=== PATIENT | female | born 1995 | race American Indian/Alaskan Native ===

== ENCOUNTER 2017-09-04 14:29 | Emergency (ER) | payer SELFPAY ==
[2017-09-04 14:40] VITALS: BP 145/103
[2017-09-04 15:07] LABS: Basophils % (Auto) 0.3 % (0.0-1.8); Eosinophils # (Auto) 0.2 K/mm3 (0.0-0.4); Eosinophils % (Auto) 1.6 % (0.0-4.3); Hematocrit 32.8 % (30.3-42.9); Hemoglobin 10.5 gm/dl (10.1-14.3); Lymphocytes # (Auto) 2.8 K/mm3 (1.2-5.4); Lymphocytes % (Auto) 29.7 % (13.4-35.0); Mean Corpuscular HGB Conc 32 % (30-34); Mean Corpuscular Volume 78 fl (79-97); Monocytes # (Auto) 0.5 K/mm3 (0.0-0.8); Monocytes % (Auto) 5.1 % (0.0-7.3); Platelet Count 335 K/mm3 (140-440); Red Blood Count 4.19 M/mm3 (3.65-5.03); Red Cell Distribution Width 14.6 % (13.2-15.2)
[2017-09-04 15:14] LABS: Mean Corpuscular Hemoglobin 25 pg (28-32)
[2017-09-04 15:27] LABS: BUN/Creatinine Ratio 11; Blood Urea Nitrogen 8 mg/dL (7-17); Calcium 9.3 mg/dL (8.4-10.2); Hemolysis Index 2
[2017-09-04 15:53] LABS: Bilirubin,Urine NEG (Negative); Blood,Urine MOD (Negative); Color,Urine Yellow (Yellow); Mucus,Urine FEW /HPF; Protein,Urine <15 mg/dL mg/dL (Negative); Urobilinogen,Urine < 2.0 mg/dL (<2.0); WBC,Urine < 1.0 /HPF (0.0-6.0)
[2017-09-04 16:10] LABS: Amphetamine Screen,Urine PRESUMPTIVE NEGATIVE; Benzodiazepines Screen,Urine PRESUMPTIVE NEGATIVE; Cocaine Screen,Urine PRESUMPTIVE NEGATIVE; Methadone Screen,Urine PRESUMPTIVE NEGATIVE; Opiate Screen,Urine PRESUMPTIVE NEGATIVE
[2017-09-04 16:49] LABS: Cannabinoid Screen,Urine PRESUMPTIVE POSITIVE
== END 2017-09-04 20:30 | disposition left against medical advice (07) ==
LOC: ED 14:29
DX: Z00.8 Encounter for other general examination (principal); Z53.21 Procedure and treatment not carried out due to patient leaving prior to being seen by health care provider
CPT/HCPCS: 36415; 80048; 80307; 81001; 84703; 85025; 93005; 93010; G0480; 80320

== ENCOUNTER 2019-04-23 10:25 | Emergency (ER) | payer SELFPAY ==
[2019-04-23 10:42] VITALS: BP 125/89
[2019-04-23 11:56] LABS: Bacteria,Urine 1+ /HPF (Negative); Bilirubin,Urine NEG (Negative); Blood,Urine NEG (Negative); Color,Urine Yellow (Yellow); Mucus,Urine FEW /HPF; Urobilinogen,Urine < 2.0 mg/dL (<2.0)
[2019-04-23 11:58] LABS: HCG Qualitative,Urine Negative (Negative)
== END 2019-04-23 15:05 | disposition left against medical advice (07) ==
LOC: ED 10:25
DX: R07.89 Other chest pain (principal); Z53.21 Procedure and treatment not carried out due to patient leaving prior to being seen by health care provider
CPT/HCPCS: 81001; 81025; 87086

== ENCOUNTER 2019-04-24 17:05 | Emergency (ER) | payer SELFPAY ==
--- NOTE | 2019-04-24 17:55 | Event Note ---
ED Screening Note ED Screening Note: chest tightness that began 04/06/19 postussive emesis hx of asthma, takes albuterol inhaler, does not have her medicine no PCP +dry cough no fever lower back discomfort that began a few days ago LNMP: february, urine test yesterday was normal UA from yesterday shows UTI This initial assessment/diagnostic orders/clinical plan/treatment(s) is/are subject to change based on patients health status, clinical progression and re- assessment by fellow clinical providers in the ED. Further treatment and workup at subsequent clinical providers discretion. Patient/guardian urged not to elope from the ED as their condition may be serious if not clinically assessed and managed. Initial orders include: CXR
[2019-04-24 17:56] VITALS: BP 142/83
== END 2019-04-24 21:05 | disposition left against medical advice (07) ==
LOC: ED 17:05
DX: R07.89 Other chest pain (principal); Z53.21 Procedure and treatment not carried out due to patient leaving prior to being seen by health care provider

== ENCOUNTER 2020-06-09 09:55 | Emergency (ER) | payer SELFPAY ==
[2020-06-09 10:32] VITALS: BP 125/87
--- NOTE | 2020-06-09 12:02 | Emergency Department Report ---
ED Female HPI - General Chief complaint: Medical Clearance Stated complaint: 3 POSTITIVE PREG TEST/NEEDS PROOF OF Time Seen by Provider: 06/09/20 11:26 Source: patient Mode of arrival: Ambulatory Limitations: No Limitations - History of Present Illness Initial comments: 25-year-old female with no significant past medical history presents to the ER today complaint of a 2-week history of abdominal cramping, bilateral breast soreness and vaginal pain. She reports associated lower back pain, intermittent nausea and vomiting and a white vaginal discharge. Patient states that she missed her period on May 27. She states that she took 3 home test yesterday and they were positive. Denies any abnormal vaginal bleeding. She states that this is her first . She has not established with an SALES DEPARTMENT MANAGER as yet. MD Complaint: other (; Abdominal pain; vag discharge) -: week(s) (2) - Related Data Allergies Allergy/AdvReac Type Severity Reaction Status Date / Time No Known Allergies Allergy Verified 04/23/19 10:34 ED Review of Systems ROS: Stated complaint: 3 POSTITIVE PREG TEST/NEEDS PROOF OF Other details as noted in HPI ED Past Medical Hx - Past Medical History Previous Medical History?: Yes Hx Psychiatric Treatment: Yes (PTSD, Mood disorde, Depression) Hx Asthma: Yes Additional medical history: Hyperthyroidism - Surgical History Past Surgical History?: No - Social History Smoking Status: Never Smoker Substance Use Type: None ED Physical Exam - General Limitations: No Limitations General appearance: alert, in no apparent distress - Head Head exam: Present: atraumatic, normocephalic, normal inspection - Eye Eye exam: Present: normal appearance, PERRL, EOMI - ENT ENT exam: Present: normal exam, mucous membranes moist - Respiratory Respiratory exam: Present: normal lung sounds bilaterally. Absent: respiratory distress - Cardiovascular Cardiovascular Exam: Present: regular rate, normal rhythm, normal heart sounds - GI/Abdominal GI/Abdominal exam: Present: soft. Absent: distended, tenderness, guarding, rebound - Back Exam Back exam: Present: normal inspection, full ROM - Neurological Exam Neurological exam: Present: alert, oriented X3, CN II-XII intact, normal gait - Psychiatric Psychiatric exam: Present: normal affect, normal mood ED Course Vital Signs 06/09/20 10:29 Temperature 98.4 F Pulse Rate 92 H Respiratory 18 Rate Blood Pressure 125/87 O2 Sat by Pulse 100 Oximetry ED Medical Decision Making - Lab Data Result diagrams: 06/09/20 11:47 06/09/20 11:47 - Medical Decision Making 25-year-old female with no significant past medical history presents to the ER today complaint of a 2-week history of abdominal cramping, bilateral breast soreness and vaginal pain. She reports associated lower back pain, intermittent nausea and vomiting and a white vaginal discharge. Patient states that she missed her period on May 27. She states that she took 3 home test yesterday and they were positive. She states she wants confirmation. Denies any abnormal vaginal bleeding. She states that this is her first . She has not established with an SALES DEPARTMENT MANAGER as yet. Labs reviewed, CBC normal, CMP normal, urinalysis does not suggest UTI, and her quant hCG is [id number]. Offered to do a pelvic exam and ultrasound on patient but she refused. She states that she is ready to go and she is hungry. She is well-appearing, not toxic, and does not appear to be in any acute distress. She appears well-hydrated. She has a soft nontender abdomen on exam. Vital signs are stable. Patient states he will follow up with the SALES DEPARTMENT MANAGER. Informed I will give her referral to local SALES DEPARTMENT MANAGER. She understands to return if her symptoms changes or worsens in any way. Patient stable at time of discharge. Critical care attestation.: If time is entered above; I have spent that time in minutes in the direct care of this critically ill patient, excluding procedure time. ED Disposition Clinical Impression: , Abdominal pain in Disposition: -01 TO HOME OR SELFCARE Is pt being admited?: No Does the pt Need Aspirin: No Condition: Stable Instructions: Abdominal Pain During , [id number] Additional Instructions: You can take Tylenol as needed for pain. Return to the ER immediately if your abdominal pain worsens in any way in any way. Follow-up closely with SALES DEPARTMENT MANAGER. Referrals: [facility] [Provider Group] - 3-5 Days Time of Disposition: 13:10
[2020-06-09 12:08] LABS: Basophils % (Auto) 0.5 % (0.0-1.8); Eosinophils # (Auto) 0.2 K/mm3 (0.0-0.4); Eosinophils % (Auto) 1.9 % (0.0-4.3); Hematocrit 35.6 % (30.3-42.9); Hemoglobin 11.6 gm/dl (10.1-14.3); Lymphocytes # (Auto) 3.1 K/mm3 (1.2-5.4); Mean Corpuscular HGB Conc 33 % (30-34); Mean Corpuscular Volume 79 fl (79-97); Monocytes # (Auto) 0.5 K/mm3 (0.0-0.8); Monocytes % (Auto) 5.7 % (0.0-7.3); Platelet Count 278 K/mm3 (140-440); Red Blood Count 4.52 M/mm3 (3.65-5.03); Red Cell Distribution Width 16.4 % (13.2-15.2)
[2020-06-09 12:20] LABS: Bilirubin,Urine NEG (Negative); Blood,Urine NEG (Negative); Color,Urine Straw (Yellow); Protein,Urine <15 mg/dL mg/dL (Negative); Urobilinogen,Urine < 2.0 mg/dL (<2.0)
[2020-06-09 12:36] LABS: Alanine Aminotransferase 8 units/L (7-56); Albumin 3.9 g/dL (3.9-5); BUN/Creatinine Ratio 10; Blood Urea Nitrogen 6 mg/dL (7-17); Calcium 8.9 mg/dL (8.4-10.2); Hemolysis Index 1
== END 2020-06-09 13:45 | disposition home or self-care (01) ==
LOC: ED 09:55
DX: O26.891 Other specified pregnancy related conditions, first trimester (principal); R10.9 Unspecified abdominal pain; Z3A.01 Less than 8 weeks gestation of pregnancy
CPT/HCPCS: 36415; 80053; 81001; 84702; 85025; 99283

== ENCOUNTER 2021-08-10 15:28 | Emergency (ER) | payer SELFPAY ==
[2021-08-10] MEDS ORDERED: ACETAMINOPHEN 500 MG TAB PO ONE (15:41)
[2021-08-10] MEDS ORDERED: SODIUM CHLORIDE 0.9% 1000 ML 1,000 ML IV ONE (15:42)
--- NOTE | 2021-08-10 17:10 | XRay Report ---
CHEST 2 VIEWS INDICATION / CLINICAL INFORMATION: sob. Dyspnea FINDINGS: SUPPORT DEVICES: None. HEART / MEDIASTINUM: No significant abnormality. LUNGS / PLEURA: No significant pulmonary or pleural abnormality. No pneumothorax. ADDITIONAL FINDINGS: No significant additional findings. IMPRESSION: 1. No acute findings. Signer Name: Dandy Bhakta MD Signed: 08/10/2021 5:06 PM Workstation Name: [id number]
--- NOTE | 2021-08-10 17:28 | Emergency Department Report ---
ED General Adult HPI - General Chief complaint: Fever Stated complaint: BODY PAIN/INCONCLUSIVE COVID RESULTS Time Seen by Provider: 08/10/21 16:37 Source: patient Mode of arrival: Ambulatory Limitations: No Limitations - History of Present Illness Initial comments: Patient 26-year-old female who presents for cough fever chills x3 days. Patient states daughter positive for COVID her COVID test was inconclusive on yesterday. Symptoms include cough productive thick white. Fevers T-max 102 1-1.9 today in triage. Generalized malaise and body aches. Patient denies shortness of breath there is no wheezing or stridor. There is no chest pain. Patient had 2 episodes of nausea no vomiting. No diarrhea to this point. Symptoms are exacerbated by activity. Symptoms are relieved by nothing tried. - Related Data Previous Rx's Medication Instructions Recorded Last Taken Type Acetaminophen [Acetaminophen TAB] 1,000 mg PO Q6HR PRN #30 tablet 08/10/21 Unknown Rx Albuterol Mdi (or & Nicu Only) 2 puff IH Q6H PRN #8.5 gram 08/10/21 Unknown Rx [ProAir HFA Inhaler] Ondansetron [Zofran Odt] 4 mg PO Q8HR PRN #12 tab.rapdis 08/10/21 Unknown Rx dexAMETHasone [Decadron] 4 mg PO BID 5 Days #10 tablet 08/10/21 Unknown Rx Allergies Allergy/AdvReac Type Severity Reaction Status Date / Time No Known Allergies Allergy Verified 04/23/19 10:34 ED Review of Systems ROS: Stated complaint: BODY PAIN/INCONCLUSIVE COVID RESULTS Other details as noted in HPI Constitutional: chills, fever, malaise Eyes: denies: eye pain, eye discharge, vision change ENT: congestion. denies: ear pain, throat pain Respiratory: cough. denies: shortness of breath, wheezing Cardiovascular: denies: chest pain, palpitations Endocrine: no symptoms reported Gastrointestinal: nausea, vomiting. denies: abdominal pain, diarrhea, constipation Genitourinary: denies: urgency, dysuria, frequency, hematuria, discharge Musculoskeletal: back pain Skin: denies: rash, lesions Neurological: headache. denies: weakness, numbness, paresthesias, confusion, vertigo Psychiatric: denies: anxiety, depression Hematological/Lymphatic: denies: easy bleeding, easy bruising ED Past Medical Hx - Past Medical History Hx Psychiatric Treatment: Yes (PTSD, Mood disorde, Depression) Hx Asthma: Yes Additional medical history: Hyperthyroidism - Social History Smoking Status: Never Smoker Substance Use Type: None - Medications Home Medications: Home Medications Medication Instructions Recorded Confirmed Last Taken Type Acetaminophen [Acetaminophen TAB] 1,000 mg PO Q6HR PRN #30 tablet 08/10/21 Unknown Rx Albuterol Mdi (or & Nicu Only) 2 puff IH Q6H PRN #8.5 gram 08/10/21 Unknown Rx [ProAir HFA Inhaler] Ondansetron [Zofran Odt] 4 mg PO Q8HR PRN #12 tab.rapdis 08/10/21 Unknown Rx dexAMETHasone [Decadron] 4 mg PO BID 5 Days #10 tablet 08/10/21 Unknown Rx ED Physical Exam - General Limitations: No Limitations General appearance: alert, in no apparent distress - Head Head exam: Present: normocephalic, normal inspection - Eye Eye exam: Present: PERRL, EOMI. Absent: conjunctival injection, nystagmus Pupils: Present: normal accommodation - ENT ENT exam: Present: mucous membranes moist - Neck Neck exam: Present: normal inspection, full ROM. Absent: tenderness, lymphadenopathy - Respiratory Respiratory exam: Present: normal lung sounds bilaterally. Absent: respiratory distress, wheezes, rales, rhonchi, stridor, chest wall tenderness - Cardiovascular Cardiovascular Exam: Present: normal rhythm, tachycardia, normal heart sounds. Absent: systolic murmur, diastolic murmur, rubs, gallop - GI/Abdominal GI/Abdominal exam: Present: soft, normal bowel sounds. Absent: distended, tenderness, guarding, rebound, rigid, bruit, hernia - Rectal Rectal exam: Present: deferred - Extremities Exam Extremities exam: Present: normal inspection, full ROM, normal capillary refill - Back Exam Back exam: Present: normal inspection, full ROM. Absent: CVA tenderness (R), CVA tenderness (L) - Neurological Exam Neurological exam: Present: alert, oriented X3, CN II-XII intact, normal gait - Expanded Neurological Exam Expanded Patient oriented to: Present: person, place, time Speech: Present: fluid speech Motor strength exam: RUE: 5, LUE: 5, RLE: 5, LLE: 5 Best Eye Response (Janes): (4) open spontaneously Best Motor Response (Janes): (6) obeys commands Best Verbal Response (Janes): (5) oriented [place] Total: 15 - Psychiatric Psychiatric exam: Present: normal affect, normal mood - Skin Skin exam: Present: warm, dry, intact, normal color. Absent: rash ED Course Vital Signs 08/10/21 15:37 Temperature 101.9 F H Pulse Rate 109 H Respiratory 20 Rate Blood Pressure 152/92 [Right] O2 Sat by Pulse 99 Oximetry ED Medical Decision Making - Lab Data Result diagrams: 08/10/21 17:59 08/10/21 17:59 Labs 08/10/21 08/10/21 08/10/21 17:59 17:59 17:59 WBC 7.4 RBC 4.79 Hgb 12.1 Hct 36.4 MCV 76 L MCH 25 L MCHC 33 RDW 16.4 H Plt Count 233 Sodium 136 L Potassium 4.1 Chloride 98.5 Carbon Dioxide 22 Anion Gap 20 BUN 8 Creatinine 0.7 Estimated GFR > 60 BUN/Creatinine Ratio 11 Glucose 81 Lactic Acid 1.90 Calcium 9.2 Total Bilirubin 0.20 AST 10 ALT 10 Alkaline Phosphatase 93 Total Protein 7.9 Albumin 4.6 Albumin/Globulin Ratio 1.4 HCG, Qual 08/10/21 17:59 WBC RBC Hgb Hct MCV MCH MCHC RDW Plt Count Sodium Potassium Chloride Carbon Dioxide Anion Gap BUN Creatinine Estimated GFR BUN/Creatinine Ratio Glucose Lactic Acid Calcium Total Bilirubin AST ALT Alkaline Phosphatase Total Protein Albumin Albumin/Globulin Ratio HCG, Qual Negative - Radiology Data Radiology results: report reviewed, image reviewed CHEST 2 VIEWS INDICATION / CLINICAL INFORMATION: sob. Dyspnea FINDINGS: SUPPORT DEVICES: None. HEART / MEDIASTINUM: No significant abnormality. LUNGS / PLEURA: No significant pulmonary or pleural abnormality. No pneumothorax. ADDITIONAL FINDINGS: No significant additional findings. IMPRESSION: 1. No acute findings. Signer Name: Dandy Bhakta MD Signed: 08/10/2021 5:06 PM Workstation Name: [id number] Transcribed By: [email or web address] Dictated By: Dandy Bhakta MD Electronically Authenticated By: Dandy Bhakta MD Signed Date/Time: 08/10/211705 DD/ 05 TD/TT: - Medical Decision Making Is resolved, chest x-ray is normal no infiltrates no opacities. Patient symptoms improved after medications given in ED. Patient is ANO x3 patient is tolerating p.o. intake without nausea or vomiting. There is no dysuria frequency or urgency there is no productive cough plan discharge to home, [place] given COVID precautions, follow-up with primary care doctor in 3 to 4 days. Patient verbalized agreement and understanding with discharge plan. Patient DC'd home in stable condition at this time. Critical care attestation.: If time is entered above; I have spent that time in minutes in the direct care of this critically ill patient, excluding procedure time. ED Disposition Clinical Impression: Viral illness, Exposure to COVID-19 virus Disposition: HOME / SELF CARE / HOMELESS Is pt being admited?: No Does the pt Need Aspirin: No Condition: Stable Instructions: Viral Illness, Adult, Prevent the Spread of COVID-19 if You Are Sick - [facility] [place] Additional Instructions: Take medication as prescribed, hydrate as directed. Follow-up with your doctor in 2 to 3 days. Prescriptions: Acetaminophen [Acetaminophen TAB] 1,000 mg PO Q6HR PRN #30 tablet PRN Reason: fever pain dexAMETHasone [Decadron] 4 mg PO BID 5 Days #10 tablet Albuterol Mdi (or & Nicu Only) [ProAir HFA Inhaler] 2 puff IH Q6H PRN #8.5 gram PRN Reason: Shortness Of Breath Ondansetron [Zofran Odt] 4 mg PO Q8HR PRN #12 tab.rapdis PRN Reason: Nausea Referrals: BRAYAN ARANDA MD [Staff Physician] - 3-5 Days Forms: Work/School Release Form(ED)
[2021-08-10 18:13] LABS: Hematocrit 36.4 % (30.3-42.9); Hemoglobin 12.1 gm/dl (10.1-14.3); Mean Corpuscular HGB Conc 33 % (30-34); Mean Corpuscular Volume 76 fl (79-97); Platelet Count 233 K/mm3 (140-440); Red Blood Count 4.79 M/mm3 (3.65-5.03); Red Cell Distribution Width 16.4 % (13.2-15.2)
[2021-08-10 18:37] LABS: Alanine Aminotransferase 10 units/L (7-56); Albumin 4.6 g/dL (3.9-5); Blood Urea Nitrogen 8 mg/dL (7-17); Calcium 9.2 mg/dL (8.4-10.2); Hemolysis Index 2
[2021-08-10 18:46] LABS: BUN/Creatinine Ratio 11
[2021-08-10 20:07] VITALS: BP 154/93
== END 2021-08-10 20:47 | disposition home or self-care (01) ==
LOC: ED 15:28
DX: B34.9 Viral infection, unspecified (principal); R05.9 Cough, unspecified; R50.9 Fever, unspecified; J45.909 Unspecified asthma, uncomplicated; E03.9 Hypothyroidism, unspecified; Z79.899 Other long term (current) drug therapy
CPT/HCPCS: 36415; 71046; 80053; 82140; 84703; 85027; 96360; 99284; J7030